=== PATIENT | female | born 1940 | race Caucasian/White ===

== ENCOUNTER 2018-01-07 10:03 | Day surgery (SDC) | payer OTHER ==
[~2018-01-07] VITALS: Ht 152.4 cm; Wt 106.8 kg
[2018-01-07 10:20] VITALS: BP 169/77; PULSE 60; RESP 20; TEMP 98; O2SAT 97
[2018-01-07] MEDS ORDERED: ROSU10 PO (10:43)
[2018-01-07] MEDS ORDERED: METF1000 PO (10:43)
[2018-01-07] MEDS ORDERED: LEVO.15 PO (10:43)
[2018-01-07] MEDS ORDERED: CHOL4POW3 PO (10:43)
[2018-01-07] MEDS ORDERED: LOSA50TA PO (10:43)
[2018-01-07] MEDS ORDERED: GABA600T PO (10:43)
[2018-01-07] MEDS ORDERED: ESTRPOW15 PO (10:43)
[2018-01-07] MEDS ORDERED: GABA300C5 PO (10:43)
[2018-01-07] MEDS ORDERED: METO-309 PO (10:43)
[2018-01-07] MEDS ORDERED: OXYB15TA PO (10:43)
[2018-01-07] MEDS ORDERED: BUSP15TA PO (10:43)
[2018-01-07] MEDS ORDERED: ARIP2 PO (10:43)
[2018-01-07] MEDS ORDERED: DEXI30CA2 (10:43)
[2018-01-07] MEDS ORDERED: PRIS50TA PO (10:43)
[2018-01-07] MEDS ORDERED: SODIUM CHLORIDE 2 ML FLUSH PRN IV FLUSH (10:45)
[2018-01-07] MEDS ORDERED: SODIUM CHLOR 0.9% 1000 ML IV SCH (10:45)
[2018-01-07] MEDS ORDERED: fentaNYL CITRATE 250 MCG/5 ML AMP ONE (12:55)
[2018-01-07] MEDS ORDERED: MIDAZOLAM HCL 5 MG/5 ML VIAL ONE (12:55)
--- NOTE | 2018-01-07 13:50 | PD.RAD ---
Post CT Procedure Prog Note Pre Procedure Diagnosis: (1) Axillary adenopathy Post Procedure Diagnosis: (1) Axillary adenopathy Procedure Date: January 07, 2018 Supervising Radiologist: Aayush Guerrero Anesthesia: Local, Conscious Sedation Plan of Activity Patient to Unit: ROP[facility] Patient Condition: Good See PACS Report for procedural detail/treatment Biopsy Imaging Guidance: CT Side: Left Biopsy Procedure: Lymph Node Site: Left axilla Specimen: Core Biopsy Aayush Guerrero MD January 07, 2018 13:50
[2018-01-07 14:05] VITALS: BP 151/74; PULSE 61; RESP 20; TEMP 97.2; O2SAT 96
[2018-01-07 14:20] VITALS: BP 146/72; PULSE 61; RESP 16; O2SAT 97
[2018-01-07 14:50] VITALS: BP 134/58; PULSE 93; RESP 16; O2SAT 93
[2018-01-07] MEDS ORDERED: SODIUM CHLORIDE 2 ML FLUSH BID IV FLUSH SCH (21:00)
--- NOTE | 2018-01-08 07:47 | RADRPT ---
EXAM DATE: 01/07/2018 4:18 PM EDT AGE/SEX: 77 years / Female INDICATIONS: Left axillary lymphadenopathy. CLINICAL DATA: This is the patient's initial encounter. Patient reports that signs and symptoms have been present for 1 day and indicates a pain score of 0/10. MEDICAL/SURGICAL HISTORY: Carcinoma, lung. Chronic obstructive pulmonary disease. Gastroesoph ageal reflux disease. Diabetes, Hypertension, Myocardial infarction. Lobectomy. Coronary artery st ent. Cholecystectomy. Chemotherapy, splenectomy, cholecystectomy, thyroidectomy, appendectomy, hyst erectomy. COMPARISON: No prior [facility] exams available for comparison. SEDATION TIME (min): 30 BIOPSY SITE: Left lymph node axillary MEDICATION(S): 1 mg midazolam (Versed) IV 50 mcg fentanyl (Sublimaze) IV DEVICE(S): 18 gauge Temno core biopsy needle One . . PROCEDURE: CT guided Left lymph node axillary biopsy Prior to the procedure informed consent was obtained. Any appropriate prior imaging studies were rev iewed. Using automated exposure control and adjustment of the mA and/or kV according to patient size, radiat ion dose was kept as low as reasonably achievable to obtain optimal diagnostic quality images. DICOM format image data is available electronically for review and comparison. The site was prepped in a sterile fashion. Full sterile technique was used, including cap, mask, eunice rile gloves and gown and a large sterile sheet. Hand hygiene and 2% chlorhexidine and/or betadine/al cohol prep was utilized per protocol for cutaneous antisepsis. The skin and subcutaneous tissues wer e infiltrated with local anesthetic solution. With CT guidance the previously identified target was localized. Biopsy was performed using the presc ribed needle as above. Adequate hemostasis was obtained with compression at the puncture site. Follow-up CT scan reveals no hemorrhage. The patient tolerated the procedure well and there were no complications. The patient was returned to the Radiology Outpatient Unit in stable condition. CONCLUSION: Uncomplicated CT guided biopsy of left axillary lymph node. Electronically signed by: Aayush Guerrero MD 01/08/2018 7:46 AM EDT
== END 2018-01-07 17:47 | disposition home or self-care (01) ==
LOC: HRAD 10:03 → HRIP 10:04 → HRAD 17:47
PROVIDERS: ATTEND Internal Medicine
DX: R59.0 Localized enlarged lymph nodes (principal); C34.91 Malignant neoplasm of unspecified part of right bronchus or lung; I25.2 Old myocardial infarction; I10 Essential (primary) hypertension; E11.9 Type 2 diabetes mellitus without complications; J44.9 Chronic obstructive pulmonary disease, unspecified
CPT/HCPCS: 38505; 77012; 82948; 88307; 88341; 88342; 88377; 99152; 99153; J2250; J3010